=== PATIENT | female | born 1995 | race Two or more races ===

== ENCOUNTER 2017-01-29 20:05 | Emergency (ER) | payer OTHER ==
[2017-01-29] MEDS ORDERED: NS 1,000 ML IV ONE (20:22)
[2017-01-29] MEDS ORDERED: ONDANSETRON 4 MG/2 ML VIAL IVP ONE (20:22)
[2017-01-29] MEDS ORDERED: HYDROmorphONE/DILAUDID 1 MG/ML INJ IVP ONE (20:22)
--- NOTE | 2017-01-29 20:25 | EDPHY ---
H & P Stated Complaint: N & V , Epigastric pain, diarrhoea. Time Seen by Provider: 01/29/17 20:22 HPI/ROS: CHIEF COMPLAINT: Right lower quadrant pain and diarrhea HISTORY OF PRESENT ILLNESS: The patient is a 21-year-old female who comes to the emergency department complaining of right lower quadrant pain and diarrhea. She states that she was seen yesterday at [facility] and that time was complaining of muscle aches, headache and nausea, vomiting and diarrhea. The vomiting and body aches and headache have resolved but she continues to have abdominal pain and diarrhea and now the pain is focused in her right lower quadrant. No urinary symptoms. No respiratory symptoms. No chest pain. She denies risk of . She has had mild persistent vaginal bleeding since having a control implant in her arm. Her diarrhea has been nonbloody. She denies any travel or drinking unfiltered water. REVIEW OF SYSTEMS: Constitutional: denies: chills, fever, recent illness, recent injury EENTM: denies: blurred vision, double vision, nose congestion Respiratory: denies: cough, shortness of breath Cardiac: denies: chest pain, irregular heart rate, lightheadedness, palpitations Gastrointestinal/Abdominal: See HPI Genitourinary: denies: dysuria, frequency, hematuria, pain Musculoskeletal: See HPI Skin: denies: lesions, rash, jaundice, bruising Neurological: denies: headache, numbness, paresthesia, tingling, dizziness, weakness Hematologic/Lymphatic: denies: blood clots, easy bleeding, easy bruising Immunologic/allergic: denies: HIV/AIDS, transplant EXAM: GENERAL: Well-appearing, well-nourished and in no acute distress. HEAD: Atraumatic, normocephalic. EYES: Pupils equal round and reactive to light, extraocular movements intact, sclera anicteric, conjunctiva are normal. ENT: TMs normal, nares patent, oropharynx clear without exudates. Moist mucous membranes. NECK: Normal range of motion, supple without lymphadenopathy or JVD. LUNGS: Breath sounds clear to auscultation bilaterally and equal. No wheezes rales or rhonchi. HEART: Regular rate and rhythm without murmurs, rubs or gallops. ABDOMEN: Right lower quadrant tenderness BACK: No CVA tenderness, no spinal tenderness, step-offs or deformities EXTREMITIES: Normal range of motion, no pitting or edema. No clubbing or cyanosis. NEUROLOGICAL: Cranial nerves II through XII grossly intact. Normal speech, normal gait. 5/5 strength, normal movement in all extremities, normal sensation PSYCH: Normal mood, normal affect. SKIN: Warm, dry, normal turgor, no visible rashes or lesions. Source: Patient Exam Limitations: No limitations - Personal History LMP (Females 10-55): Extended Cycle BCP/Inj Current Tetanus/Diphtheria Vaccine: Unsure Current Tetanus Diphtheria and Acellular Pertussis (TDAP): Unsure - Medical/Surgical History Hx Asthma: No Hx Chronic Respiratory Disease: No Hx Diabetes: No Hx Cardiac Disease: No Hx Renal Disease: No Hx Cirrhosis: No Hx Alcoholism: No Hx HIV/AIDS: No Hx Splenectomy or Spleen Trauma: No Other PMH: [place] teeth. - Family History Significant Family History: No pertinent family hx - Social History Smoking Status: Never smoked Alcohol Use: Sober Drug Use: None Constitutional: Initial Vital Signs Temperature (C) 37.3 C 01/29/17 20:10 Heart Rate 78 01/29/17 20:10 Respiratory Rate 16 01/29/17 20:10 Blood Pressure 124/91 H 01/29/17 20:10 O2 Sat (%) 98 01/29/17 20:10 O2 Delivery Mode Room Air Allergies/Adverse Reactions: No Known Allergies Allergy (Unverified 01/29/17 20:17) Home Medications: Medication Instructions Recorded Ondansetron Odt [Zofran Odt 4 mg 4 mg PO Q4 PRN #20 tab 01/29/17 (RX)] Medical Decision Making - Diagnostics Imaging Results: Imaging Impressions Abdomen CT 01/29/17 20:22 Impression: Diffuse colitis worse in the right-sided colon and cecum. Mild free fluid in the pelvis. Results called and discussed with Dr. Denver Colunga on 01/29/2017 at 2134 hours. ED Course/Re-evaluation: 9:30 p.m. the patient's lab work is reassuring. We discussed her CT scan which is also reassuring. The patient is asking for p.o. challenge. I will have her provide a stool sample for GI pathogens. She is afebrile and nontoxic- appearing. I will not start her on antibiotics at this point. We discussed indications for returning. Her repeat abdominal exam is benign. She is laughing with her friends. I will give her a take-home Zofran and encouraged her to stay hydrated. Differential Diagnosis: Partial list of the Differential diagnosis considered include but were not limited to; colitis, appendicitis, ovarian cyst and although unlikely based on the history and physical exam, I also considered ovarian torsion, PID, , biliary disease. I discussed these differential diagnoses and the plan with the patient as well as the usual and expected course. The patient understands that the diagnosis is provisional and that in medicine we are not always correct and that further workup is often warranted. Usual and customary warnings were given. All of the patient's questions were answered. The patient was instructed to return to the emergency department should the symptoms at all worsen or return, otherwise to followup with the physician as we discussed. - Data Points Laboratory Results: Laboratory Results 01/29/17 20:30 01/29/17 20:30 01/29/17 01/29/17 01/29/17 20:55 20:45 20:30 WBC RBC Hgb POC Hgb Hct POC Hct MCV MCH MCHC RDW Plt Count MPV Neut % (Auto) Lymph % (Auto) [place] % (Auto) Eos % (Auto) Baso % (Auto) Nucleat RBC Rel Count Absolute Neuts (auto) Absolute Lymphs (auto) Absolute Monos (auto) Absolute Eos (auto) Absolute Basos (auto) Absolute Nucleated RBC Immature Gran % Immature Gran # POC Sodium Sodium POC Potassium Potassium POC Chloride Chloride Carbon Dioxide Anion Gap POC BUN BUN Creatinine POC Creatinine Estimated GFR Glucose POC Glucose Calcium Total Bilirubin Conjugated Bilirubin Unconjugated Bilirubin AST ALT Alkaline Phosphatase Total Protein Albumin Lipase Beta HCG, Qual NEGATIVE Urine Color YELLOW Urine Appearance HAZY Urine pH 6.5 (5.0-7.5) Ur Specific [place] <= 1.005 (1.002-1.030) Urine Protein NEGATIVE (NEGATIVE) Urine Ketones NEGATIVE (NEGATIVE) Urine Blood 3+ H (NEGATIVE) Urine Nitrate NEGATIVE (NEGATIVE) Urine Bilirubin NEGATIVE (NEGATIVE) Urine Urobilinogen 0.2 EU EU (0.2-1.0) Ur Leukocyte Esterase NEGATIVE (NEGATIVE) Urine RBC 15-25 /hpf H /hpf (0-3) Urine WBC OCCASIONAL /hpf /hpf (0-3) Ur Epithelial Cells 3+ /lpf H /lpf (NONE-1+) Urine Bacteria 1+ /hpf H /hpf (NONE SEEN) Urine Mucus 1+ /lpf /lpf (NONE-1+) Urine Glucose NEGATIVE (NEGATIVE) Influenza A & B (PCR) Pending 01/29/17 01/29/17 01/29/17 20:30 20:30 20:27 WBC 10.18 10^3/uL H 10^3/uL (3.80-9.50) RBC 4.62 10^6/uL 10^6/uL (4.18-5.33) Hgb 14.6 g/dL g/dL (12.6-16.3) POC Hgb 15.0 gm/dL gm/dL (12.6-16.3) Hct 41.9 % % (38.0-47.0) POC Hct 44 % % (38-47) MCV 90.7 fL fL (81.5-99.8) MCH 31.6 pg pg (27.9-34.1) MCHC 34.8 g/dL g/dL (32.4-36.7) RDW 11.7 % % (11.5-15.2) Plt Count 224 10^3/uL 10^3/uL (150-400) MPV 9.4 fL fL (8.7-11.7) Neut % (Auto) 77.9 % H % (39.3-74.2) Lymph % (Auto) 13.1 % L % (15.0-45.0) [place] % (Auto) 7.2 % % (4.5-13.0) Eos % (Auto) 1.3 % % (0.6-7.6) Baso % (Auto) 0.2 % L % (0.3-1.7) Nucleat RBC Rel Count 0.0 % % (0.0-0.2) Absolute Neuts (auto) 7.94 10^3/uL H 10^3/uL (1.70-6.50) Absolute Lymphs (auto) 1.33 10^3/uL 10^3/uL (1.00-3.00) Absolute Monos (auto) 0.73 10^3/uL 10^3/uL (0.30-0.80) Absolute Eos (auto) 0.13 10^3/uL 10^3/uL (0.03-0.40) Absolute Basos (auto) 0.02 10^3/uL 10^3/uL (0.02-0.10) Absolute Nucleated RBC 0.00 10^3/uL 10^3/uL (0-0.01) Immature Gran % 0.3 % % (0.0-1.1) Immature Gran # 0.03 10^3/uL 10^3/uL (0.00-0.10) POC Sodium 143 mEq/L mEq/L (134-144) Sodium 140 mEq/L mEq/L (134-144) POC Potassium 3.4 mEq/L mEq/L (3.3-5.0) Potassium 3.7 mEq/L mEq/L (3.5-5.2) POC Chloride 108 mEq/L mEq/L (97-110) Chloride 108 mEq/L mEq/L (97-110) Carbon Dioxide 21 mEq/l L mEq/l (22-31) Anion Gap 11 mEq/L mEq/L (8-16) POC BUN 4 mg/dL L mg/dL (7-23) BUN 6 mg/dL L mg/dL (7-23) Creatinine 0.7 mg/dL mg/dL (0.6-1.0) POC Creatinine 0.7 mg/dL mg/dL (0.6-1.0) Estimated GFR > 60 Glucose 109 mg/dL H mg/dL (70-100) POC Glucose 108 mg/dL H mg/dL (70-100) Calcium 9.6 mg/dL mg/dL (8.5-10.4) Total Bilirubin 0.6 mg/dL mg/dL (0.1-1.4) Conjugated Bilirubin 0.5 mg/dL mg/dL (0.0-0.5) Unconjugated Bilirubin 0.1 mg/dL mg/dL (0.0-1.1) AST 63 IU/L H IU/L (14-46) ALT 41 IU/L IU/L (9-52) Alkaline Phosphatase 56 IU/L IU/L (38-126) Total Protein 6.9 g/dL g/dL (6.3-8.2) Albumin 4.0 g/dL g/dL (3.5-5.0) Lipase 85 IU/L IU/L (23-300) Beta HCG, Qual Urine Color Urine Appearance Urine pH Ur Specific [place] Urine Protein Urine Ketones Urine Blood Urine Nitrate Urine Bilirubin Urine Urobilinogen Ur Leukocyte Esterase Urine RBC Urine WBC Ur Epithelial Cells Urine Bacteria Urine Mucus Urine Glucose Influenza A & B (PCR) Medications Given: Discontinued Medications Hydromorphone HCl (Dilaudid) 1 mg IVP EDNOW ONE Stop: 01/29/17 20:23 Last Admin: 01/29/17 20:35 Dose: 1 mg Sodium Chloride (Ns) 1,000 mls @ 0 mls/hr IV EDNOW ONE; Wide Open PRN Reason: Protocol Stop: 01/29/17 20:23 Last Admin: 01/29/17 20:35 Dose: 1,000 mls Ondansetron HCl (Zofran) 4 mg IVP EDNOW ONE Stop: 01/29/17 20:23 Last Admin: 01/29/17 20:36 Dose: 4 mg Ondansetron HCl (Zofran Odt 4 Mg Prepack#2) 1 btl TAKEHOME EDNOW ONE Stop: 01/29/17 21:40 Last Admin: 01/29/17 21:57 Dose: 1 btl Point of Care Test Results: 01/29/17 20:27 POC Sodium 143 POC Potassium 3.4 POC Chloride 108 POC BUN 4 L POC Creatinine 0.7 POC Glucose 108 H Departure - Departure Disposition: Home, Routine, Self-Care Clinical Impression: Colitis Condition: Fair Instructions: Ondansetron (By mouth), Colitis (ED) Referrals: NONE *PRIMARY CARE P,. [Primary Care Provider] - As per Instructions [facility] [Clinic] - As per Instructions Stand Alone Forms: Physical Education Excuse Prescriptions: Ondansetron Odt [Zofran Odt 4 mg (RX)] 4 mg PO Q4 PRN #20 tab PRN Reason: Nausea & Vomiting
[2017-01-29 20:39] LABS: % IMMATURE GRANULYOCYTES 0.3 % (0.0-1.1); ABSOLUTE IMMATURE GRANULOCYTES 0.03 10^3/uL (0.00-0.10); ADD DIFF? NO; ADD MORPH? NO; ADD SCAN? NO; ATYPICAL LYMPHOCYTE FLAG 10 (0-99); FRAGMENT RBC FLAG 0 (0-99); HEMATOCRIT 41.9 % (38.0-47.0); HEMOGLOBIN 14.6 g/dL (12.6-16.3); LEFT SHIFT FLG 0 (0-99); LIPEMIA HEMOLYSIS FLAG 90 (0-99); MEAN CELL HEMOGLOBIN 31.6 pg (27.9-34.1); MEAN CELL HEMOGLOBIN CONCENTR. 34.8 g/dL (32.4-36.7); MEAN CELL VOLUME 90.7 fL (81.5-99.8); MEAN PLATELET VOLUME 9.4 fL (8.7-11.7); PLATELET CLUMPS FLAG 10 (0-99); PLATELET COUNT 224 10^3/uL (150-400); RED BLOOD CELL COUNT 4.62 10^6/uL (4.18-5.33); RED CELL DISTRIBUTION WIDTH 11.7 % (11.5-15.2)
[2017-01-29 20:45] VITALS: RESP 18
[2017-01-29 20:53] LABS: ALANINE AMINOTRANSFERASE 41 IU/L (9-52); ALKALINE PHOSPHATASE 56 IU/L (38-126); ANION GAP 11 mEq/L (8-16); ASPARTATE AMINOTRANSFERASE 63 IU/L (14-46); BILIRUBIN,TOTAL 0.6 mg/dL (0.1-1.4); BILIRUBIN-CONJUGATED 0.5 mg/dL (0.0-0.5); BILIRUBIN-UNCONJUGATED 0.1 mg/dL (0.0-1.1); CALCIUM 9.6 mg/dL (8.5-10.4); CARBON DIOXIDE 21 mEq/l (22-31); CHLORIDE 108 mEq/L (97-110); CREATININE 0.7 mg/dL (0.6-1.0); GLOMERULAR FILTRATION RATE > 60; GLUCOSE 109 mg/dL (70-100); POTASSIUM 3.7 mEq/L (3.5-5.2); SODIUM 140 mEq/L (134-144); TOTAL PROTEIN 6.9 g/dL (6.3-8.2)
[2017-01-29 20:53] LABS: COLOR YELLOW; LEUKOCYTE ESTERASE,URINE NEGATIVE (NEGATIVE); NITRITE,URINE NEGATIVE (NEGATIVE); PH,URINE 6.5 (5.0-7.5)
[2017-01-29] MEDS ORDERED: IOPAMIDOL (ISOVUE-300) 100 ML BTL ONE (20:54)
[2017-01-29 21:02] LABS: BACTERIA 1+ /hpf (NONE SEEN); MUCUS 1+ /lpf (NONE-1+); RBC,URINE 15-25 /hpf (0-3); WBC,URINE OCCASIONAL /hpf (0-3)
[2017-01-29] MEDS ORDERED: ONDANSETRON 4MG PREPACK#2 BTL TAKEHOME ONE (21:39)
[2017-01-29 22:01] VITALS: BP 135/87; PULSE 84; TEMP 98.6; O2SAT 95
== END 2017-01-29 22:00 | disposition home or self-care (01) ==
LOC: CED 20:05
DX: K52.9 Noninfective gastroenteritis and colitis, unspecified (principal); E86.9 Volume depletion, unspecified
CPT/HCPCS: 74177-PO; 80048-PO; 80076-PO; 81003-PO; 81015-PO; 82947-QW; 83690-PO; 84703-PO; 85025-PO; 96374; J1170; J2405; Q9967

== ENCOUNTER 2017-01-30 02:22 | Inpatient (IN) | payer OTHER ==
--- NOTE | 2017-01-30 02:23 | EDPHY ---
H & P HPI/ROS: HPI CHIEF COMPLAINT: Abdominal pain HISTORY OF PRESENT ILLNESS: This patient 21-year-old female, she was here in the emergency room earlier this evening with right lower quadrant abdominal pain and diarrhea. She had a CT scan that showed colitis. Worse on the right side. She was sent home with ibuprofen. She presents back to the emergency room at 2:20 a.m. in the morning with abdominal pain. States the ibuprofen is not helping. She is requesting something stronger. She denies fever. Denies bloody stools. Of note I did review this patient's lab work and recent ER visit and recent CT scan. Past Medical History: Denies medical history Past Surgical History: Denies surgical history Social History: Denies daily use of drugs alcohol tobacco products. Family History: Noncontributory ROS REVIEW OF SYSTEMS: A comprehensive 10 point review of systems is otherwise negative aside from elements mentioned in the history of present illness. Exam Constitutional appears well nontoxic, triage nursing summary reviewed, vital signs reviewed, awake/alert. Eyes normal conjunctivae and sclera, EOMI, PERRLA. HENT normal inspection, atraumatic, moist mucus membranes, no epistaxis, neck supple/ no meningismus, no raccoon eyes. Respiratory clear to auscultation bilaterally, normal breath sounds, no respiratory distress, no wheezing. Cardiovascular rate normal, regular rhythm, no murmur, no edema, distal pulses normal. Gastrointestinal soft abdomen, tender palpation lower abdomen worse on the right side, no peritoneal signs, no rebound, no guarding, normal bowel sounds, no distension, no pulsatile mass. Genitourinary no CVA tenderness. Musculoskeletal no midline vertebral tenderness, full range of motion, no calf swelling, no tenderness of extremities, no meningismus, good pulses, neurovascularly intact. Skin pink, warm, & dry, no rash, skin atraumatic. Neurologic awake, alert and oriented x 3, AAOx3, moves all 4 extremities equally, motor intact, sensory intact, CN II-XII intact, normal cerebellar, normal vision, normal speech. Psychiatric normal mood/affect. Heme/Lymph/Immune no lymphadenopathy. Differential Diagnosis: Includes but is not limited to in a particular order colitis, acute abdominal pain, electrolyte disturbance, dehydration, need for pain control. Medical Decision Making: Plan for this patient IV establishment IV fluid bolus , IV Dilaudid for pain control, IV Zofran for nausea, check basic blood work once again. I do not feel that we need to reimage her. However given her ongoing abdominal pain and colitis seen on previous CT scan I do feel that the patient should be admitted to the hospital. Ice her pain is poorly managed at home and she has significant colitis on CT scan. She does report since leaving the emergency room her pain has been about the same no better. Additionally she has not had any vomiting but does feel nauseous. She has had some diarrhea nonbloody she tells me. No fever. Re-evaluation: 0231AM: I will consult the hospitalist service for admission. 0249AM: I did consult the hospitalist service and spoke with Dr. Ray who agrees to admit this patient. Patient will be admitted for diffuse colitis , ongoing nausea, pain control. Did explain to the patient we should get a stool study. I have started on some Flagyl due to significant thickening of the colonic wall with diffuse colitis and now has a low-grade fever. 37.9 0304AM: Patient's KUB shows no free air. There were some small amount of air- fluid levels. But there is no free air. No indication of bowel obstruction. Source: Patient - Medical/Surgical History Hx Asthma: No Hx Chronic Respiratory Disease: No Hx Diabetes: No Hx Cardiac Disease: No Hx Renal Disease: No Hx Cirrhosis: No Hx Alcoholism: No Hx HIV/AIDS: No Hx Splenectomy or Spleen Trauma: No Other PMH: [place] teeth. - Social History Smoking Status: Never smoked Constitutional: Initial Vital Signs Temperature (C) 36.9 C 01/30/17 02:26 Heart Rate 96 01/30/17 02:26 Respiratory Rate 18 01/30/17 02:26 Blood Pressure 125/84 H 01/30/17 02:26 O2 Sat (%) 96 01/30/17 02:26 O2 Delivery Mode Room Air Allergies/Adverse Reactions: No Known Allergies Allergy (Unverified 01/29/17 20:17) Home Medications: Medication Instructions Recorded NK [No Known Home Meds] 01/30/17 Medical Decision Making - Data Points Laboratory Results: Laboratory Results 01/30/17 02:30 01/30/17 02:30 Medications Given: Acetaminophen (Tylenol) 650 mg PO Q4HRS PRN PRN Reason: Pain, Mild/Fever, Can Take PO Stop: 07/29/17 05:12 Last Admin: 01/30/17 23:51 Dose: 650 mg Sodium Chloride (Ns) 1,000 mls @ 125 mls/hr IV CONT VIVIAN Stop: 07/29/17 11:29 Last Admin: 01/30/17 14:36 Dose: 1,000 mls Morphine Sulfate (Morphine) 1 - 2 mg IVP Q1HR PRN PRN Reason: Pain, Severe Unable to Take PO Stop: 02/09/17 05:12 Last Admin: 01/30/17 17:39 Dose: 2 mg Oxycodone HCl (Oxycodone Ir) 5 - 10 mg PO Q3HRS PRN PRN Reason: Pain, Severe Able to Take PO Stop: 02/09/17 05:12 Last Admin: 01/30/17 23:52 Dose: 5 mg Discontinued Medications Acetaminophen (Tylenol) 1,000 mg PO EDNOW ONE Stop: 01/30/17 02:47 Last Admin: 01/30/17 02:52 Dose: 1,000 mg Hydromorphone HCl (Dilaudid) 1 mg IVP EDNOW ONE Stop: 01/30/17 02:30 Last Admin: 01/30/17 02:36 Dose: 1 mg Sodium Chloride (Ns) 1,000 mls @ 0 mls/hr IV EDNOW ONE; Wide Open PRN Reason: Protocol Stop: 01/30/17 02:30 Last Admin: 01/30/17 02:36 Dose: 1,000 mls Ciprofloxacin/Dextrose (Cipro 400 Mg (Premix)) 200 mls @ 200 mls/hr IV EDNOW ONE PRN Reason: Protocol Stop: 01/30/17 03:33 Last Admin: 01/30/17 02:44 Dose: 200 mls Metronidazole/Sodium Chloride (Flagyl 500 Mg (Premix)) 100 mls @ 100 mls/hr IV EDNOW ONE PRN Reason: Protocol Stop: 01/30/17 03:33 Last Admin: 01/30/17 03:48 Dose: 100 mls Sodium Chloride (Ns) 1,000 mls @ 3,000 mls/hr IV ONCE ONE Stop: 01/30/17 05:32 Last Admin: 01/30/17 05:59 Dose: 1,000 mls Ondansetron HCl (Zofran) 4 mg IVP EDNOW ONE Stop: 01/30/17 02:30 Last Admin: 01/30/17 02:36 Dose: 4 mg Vancomycin HCl (Vancocin Oral Liquid) 125 mg PO QID VIVIAN PRN Reason: Protocol Stop: 03/01/17 11:29 Last Admin: 01/30/17 13:16 Dose: Not Given Departure - Departure Disposition: [facility] Clinical Impression: Colitis Abdominal pain Qualifiers: Abdominal location: right lower quadrant Qualified Code(s): R10.31 - Right lower quadrant pain Condition: Fair
[2017-01-30] MEDS ORDERED: NS 1,000 ML IV ONE ×2 (02:29→05:13)
[2017-01-30] MEDS ORDERED: HYDROmorphONE/DILAUDID 1 MG/ML INJ IVP ONE (02:29)
[2017-01-30] MEDS ORDERED: ONDANSETRON 4 MG/2 ML VIAL IVP ONE (02:29)
[2017-01-30] MEDS ORDERED: CIPROFLOXACIN 400 MG/DEXTROSE 200 ML IV ONE (02:34)
[2017-01-30] MEDS ORDERED: ACETAMINOPHEN 500 MG TAB PO ONE (02:46)
[2017-01-30 02:48] LABS: % IMMATURE GRANULYOCYTES 0.3 % (0.0-1.1); ABSOLUTE IMMATURE GRANULOCYTES 0.03 10^3/uL (0.00-0.10); ADD DIFF? NO; ADD MORPH? NO; ADD SCAN? NO; ATYPICAL LYMPHOCYTE FLAG 10 (0-99); FRAGMENT RBC FLAG 0 (0-99); HEMOGLOBIN 13.9 g/dL (12.6-16.3); LEFT SHIFT FLG 0 (0-99); LIPEMIA HEMOLYSIS FLAG 90 (0-99); MEAN CELL HEMOGLOBIN 31.5 pg (27.9-34.1); MEAN CELL HEMOGLOBIN CONCENTR. 34.8 g/dL (32.4-36.7); MEAN CELL VOLUME 90.7 fL (81.5-99.8); MEAN PLATELET VOLUME 9.3 fL (8.7-11.7); PLATELET CLUMPS FLAG 0 (0-99); PLATELET COUNT 204 10^3/uL (150-400); RED BLOOD CELL COUNT 4.41 10^6/uL (4.18-5.33); RED CELL DISTRIBUTION WIDTH 11.8 % (11.5-15.2)
[2017-01-30 02:57] LABS: ANION GAP 14 mEq/L (8-16); CARBON DIOXIDE 19 mEq/l (22-31); CHLORIDE 109 mEq/L (97-110); CREATININE 0.6 mg/dL (0.6-1.0); GLOMERULAR FILTRATION RATE > 60; GLUCOSE 115 mg/dL (70-100); SODIUM 142 mEq/L (134-144)
[2017-01-30] MEDS ORDERED: ONDANSETRON DISINTEGRATING 4 MG TAB PO PRN (05:13)
[2017-01-30] MEDS ORDERED: ONDANSETRON 4 MG/2 ML VIAL IVP PRN (05:13)
--- NOTE | 2017-01-30 05:20 | PDGENHP ---
History and Physical - Chief Complaint Diarrhea - History of Present Illness 21 yo F w/ no PMHx presented to ED with 2 days of diarrhea. Patient began to experience diarrhea 2 days ago. She was having 10+ daily BMs described as watery. She denies blood or mucus in her stool. She then developed keshia- umbilical abdominal pain 1 day ago. She denies eating any new or undercooked/ reheated foods. She also denies recent travel or antibiotic exposure. Her roommate did have an upper respiratory infection recently. She was [place] [facility] [place] discharged with only ibuprofen. She returned to the [facility] again with ongoing pain and was admitted for pain control. Patient is able to tolerate PO and is now only having 1/10 pain. History Information - Allergies/Home Medication List Allergies/Adverse Reactions: No Known Allergies Allergy (Unverified 01/29/17 20:17) I have personally reviewed and updated: family history, medical history - Past Medical History Additional medical history: Iron Def Anemia - Surgical History Reports: no pertinent surgical hx - Family History Positive for: cancer, connective tissue disorder, diabetes type II - Social History Smoking Status: Never smoked Drug Use: None Review of Systems Review of Systems: ROS: 10pt was reviewed & negative except for what was stated in HPI & below Physical Exam Physical Exam: Temp Pulse Resp BP Pulse Ox 37.1 C 92 16 119/77 98 01/30/17 04:35 01/30/17 04:35 01/30/17 04:35 01/30/17 04:35 01/30/17 04:35 Constitutional: no apparent distress, appears nourished Eyes: PERRL, EOMI Ears, Nose, Mouth, Throat: moist mucous membranes, hearing normal, no oral mucosal ulcers Cardiovascular: regular rate and rhythym, no murmur, rub, or gallop Respiratory: no respiratory distress, clear to auscultation Gastrointestinal: tenderness (Lower abdomen), No guarding, No rebound Skin: warm, normal color Musculoskeletal: full muscle strength, no muscle tenderness Neurologic: AAOx3, CN II-XII Intact Lab Data & Imaging Review 01/30/17 02:30 01/30/17 02:30 WBC 9.82 10^3/uL (3.80-9.50) H 01/30/17 02:30 RBC 4.41 10^6/uL (4.18-5.33) 01/30/17 02:30 Hgb 13.9 g/dL (12.6-16.3) 01/30/17 02:30 Hct 40.0 % (38.0-47.0) 01/30/17 02:30 MCV 90.7 fL (81.5-99.8) 01/30/17 02:30 MCH 31.5 pg (27.9-34.1) 01/30/17 02:30 MCHC 34.8 g/dL (32.4-36.7) 01/30/17 02:30 RDW 11.8 % (11.5-15.2) 01/30/17 02:30 Plt Count 204 10^3/uL (150-400) 01/30/17 02:30 MPV 9.3 fL (8.7-11.7) 01/30/17 02:30 Neut % (Auto) 84.8 % (39.3-74.2) H 01/30/17 02:30 Lymph % (Auto) 8.2 % (15.0-45.0) L 01/30/17 02:30 [place] % (Auto) 6.1 % (4.5-13.0) 01/30/17 02:30 Eos % (Auto) 0.3 % (0.6-7.6) L 01/30/17 02:30 Baso % (Auto) 0.3 % (0.3-1.7) 01/30/17 02:30 Nucleat RBC Rel Count 0.0 % (0.0-0.2) 01/30/17 02:30 Absolute Neuts (auto) 8.32 10^3/uL (1.70-6.50) H 01/30/17 02:30 Absolute Lymphs (auto) 0.81 10^3/uL (1.00-3.00) L 01/30/17 02:30 Absolute Monos (auto) 0.60 10^3/uL (0.30-0.80) 01/30/17 02:30 Absolute Eos (auto) 0.03 10^3/uL (0.03-0.40) 01/30/17 02:30 Absolute Basos (auto) 0.03 10^3/uL (0.02-0.10) 01/30/17 02:30 Absolute Nucleated RBC 0.00 10^3/uL (0-0.01) 01/30/17 02:30 Immature Gran % 0.3 % (0.0-1.1) 01/30/17 02:30 Immature Gran # 0.03 10^3/uL (0.00-0.10) 01/30/17 02:30 Sodium 142 mEq/L (134-144) 01/30/17 02:30 Potassium 4.0 mEq/L (3.5-5.2) 01/30/17 02:30 Chloride 109 mEq/L (97-110) 01/30/17 02:30 Carbon Dioxide 19 mEq/l (22-31) L 01/30/17 02:30 Anion Gap 14 mEq/L (8-16) 01/30/17 02:30 BUN 5 mg/dL (7-23) L 01/30/17 02:30 Creatinine 0.6 mg/dL (0.6-1.0) 01/30/17 02:30 Estimated GFR > 60 01/30/17 02:30 Glucose 115 mg/dL (70-100) H 01/30/17 02:30 Calcium 9.0 mg/dL (8.5-10.4) 01/30/17 02:30 Imaging Review: CT with diffuse colonic inflammation and mesenteric stranding. Assessment & Plan Assessment: 21 yo F presenting with colitis. Plan: 1. Diarrhea - Likely infectious; possibly bacterial noting diffuse inflammation and mesenteric stranding seen on CT although no blood or mucus in stool. WBC only 9 and other laboratory work-up reassuring. Patient is tolerating PO and now only having minimal pain. She has no significant risk factors for unusual pathogens. - Additional 1L IVF now - Oxy, morphine PRN for pain - Will send stool studies - Cipro started in ED, reasonable to continue for 3-5 day course; can switch to PO on discharge - Overall I suspect the patient can discharge later today after additional fluids and collection of a stool sample Diet - Regular Code - Full Ppx - Low risk Dispo - Admit to observation status
[2017-01-30] MEDS: ACETAMINOPHEN 325 MG TAB PO PRN ×2 (05:58→23:51)
--- NOTE | 2017-01-30 11:23 | HOSPPROG ---
Hospitalist Progress Note Assessment/Plan: 21 yo female admitted with acute diarrheal illness, started on IV Cipro. Chart reviewed, pt seen and examined. C diff and E coli diarrhea - stop Cipro, start po vanco, IVF's, supportive care. Dispo - cont obs, possible dc in am Subjective: Pt continues to have diarrhea associated with crampy lower abdominal pain. No fevers. No vomiting. Objective: Vital Signs Temp Pulse Resp BP Pulse Ox 36.8 C 75 16 112/62 97 01/30/17 07:31 01/30/17 07:31 01/30/17 07:31 01/30/17 07:31 01/30/17 07:31 01/29/17 01/30/17 01/31/17 05:59 05:59 05:59 Intake Total 825 Output Total 300 Balance 825 -300 - Physical Exam Constitutional: no apparent distress Eyes: PERRL Ears, Nose, Mouth, Throat: moist mucous membranes Cardiovascular: regular rate and rhythym Gastrointestinal: normoactive bowel sounds, other (soft, nd, +diffuse TTP, no r/ r/g or peritoneal signs) Skin: warm Musculoskeletal: full muscle strength Neurologic: AAOx3 Psychiatric: interacting appropriately ICD10 Worksheet Patient Problems: Problems Problem Status Onset Abdominal pain Acute Colitis Acute
[2017-01-30] MEDS: oxyCODONE IR 5 MG TAB PO PRN ×3 (12:33→23:52)
[2017-01-30] MEDS: VANCOMYCIN 125 MG/2.5 ML UDL PO SCH ×2 (12:34→13:16)
[2017-01-30] MEDS ORDERED: CIPROFLOXACIN 400 MG/DEXTROSE 200 ML IV SCH (14:30)
[2017-01-30] MEDS: NS 1,000 ML IV SCH (14:36)
--- NOTE | 2017-01-30 14:50 | ASMTCMCOM ---
CM Note CM Note Notes: Anticipate pt will DC with no needs. C/M available if needs change. Date Signed: 01/30/2017 02:49 PM Electronically Signed By:Lucila Alvarado LCSW
[2017-01-31 05:14] LABS: % IMMATURE GRANULYOCYTES 0.6 % (0.0-1.1); ABSOLUTE IMMATURE GRANULOCYTES 0.07 10^3/uL (0.00-0.10); ADD DIFF? NO; ADD MORPH? NO; ADD SCAN? NO; ATYPICAL LYMPHOCYTE FLAG 70 (0-99); FRAGMENT RBC FLAG 0 (0-99); HEMOGLOBIN 12.9 g/dL (12.6-16.3); LEFT SHIFT FLG 20 (0-99); LIPEMIA HEMOLYSIS FLAG 90 (0-99); MEAN CELL HEMOGLOBIN 31.7 pg (27.9-34.1); MEAN CELL HEMOGLOBIN CONCENTR. 33.9 g/dL (32.4-36.7); MEAN CELL VOLUME 93.4 fL (81.5-99.8); PLATELET CLUMPS FLAG 0 (0-99); PLATELET COUNT 191 10^3/uL (150-400); RED BLOOD CELL COUNT 4.07 10^6/uL (4.18-5.33); RED CELL DISTRIBUTION WIDTH 11.7 % (11.5-15.2)
[2017-01-31 05:31] LABS: ANION GAP 8 mEq/L (8-16); CALCIUM 8.5 mg/dL (8.5-10.4); CARBON DIOXIDE 23 mEq/l (22-31); CHLORIDE 105 mEq/L (97-110); CREATININE 0.7 mg/dL (0.6-1.0); GLOMERULAR FILTRATION RATE > 60; GLUCOSE 87 mg/dL (70-100); POTASSIUM 3.9 mEq/L (3.5-5.2); SODIUM 136 mEq/L (134-144)
[2017-01-31] MEDS: oxyCODONE IR 5 MG TAB PO PRN ×3 (09:28→16:24)
[2017-01-31] MEDS: NS 1,000 ML IV SCH (09:37)
[2017-01-31] MEDS ORDERED: FLU VACC QS 2017-18 (3YR+)/PF 0.5 ML SYR (FLUARIX QUAD) IM ONE (09:45)
--- NOTE | 2017-01-31 16:34 | HOSPPROG ---
Hospitalist Progress Note Assessment/Plan: 21 yo female admitted with acute diarrheal illness. E coli diarrhea - also positive for C diff, likely colonized and E coli is infectious organism. -cont supportive care, IVF's, pain control Dispo - change to inpt as pt needs ongoing hospitalization for volume depletion in setting of extensive volume less from acute infectious diarrheal illness Subjective: PT complains of crampy abdominal pain, persistent diarrhea 6 times overnight. No bloody stools. No vomiting, some nausea. Taking clears. Objective: Vital Signs Temp Pulse Resp BP Pulse Ox 37.6 C 98 16 121/77 H 95 01/31/17 15:43 01/31/17 15:43 01/31/17 15:43 01/31/17 15:43 01/31/17 15:43 Laboratory Results 01/31/17 04:29 01/31/17 04:29 01/30/17 01/31/17 02/01/17 05:59 05:59 05:59 Intake Total 825 2000 250 Output Total 300 Balance 825 1700 250 - Physical Exam Constitutional: no apparent distress Eyes: PERRL Ears, Nose, Mouth, Throat: moist mucous membranes Cardiovascular: regular rate and rhythym Respiratory: no respiratory distress Gastrointestinal: normoactive bowel sounds, other (soft, nd, +diffuse mild TTP, no r/r/g) Skin: warm Musculoskeletal: full muscle strength Neurologic: AAOx3 Psychiatric: interacting appropriately ICD10 Worksheet Patient Problems: Problems Problem Status Onset Abdominal pain Acute Colitis Acute
[2017-01-31] MEDS: ACETAMINOPHEN 325 MG TAB PO PRN (19:43)
[2017-02-01 07:47] VITALS: BP 101/58; PULSE 68; RESP 14; TEMP 98.7; O2SAT 91
[2017-02-01] MEDS: oxyCODONE IR 5 MG TAB PO PRN (08:35)
[2017-02-01] MEDS ORDERED: FLU VACC QS 2017-18 (3YR+)/PF 0.5 ML SYR (FLUARIX QUAD) IM ONE ×2 (10:00→14:00)
--- NOTE | 2017-02-01 14:08 | ASDISCHSUM ---
Discharge Information Plan Status:Home with No Needs Medically Cleared to Leave: Discharge Date:02/01/2017 01:55 PM CM D/C Disposition: ADT D/C Disposition:Home, Routine, Self-Care Projected Discharge Date:02/01/2017 01:55 PM Transportation at D/C: Discharge Delay Reason: Follow-Up Date:02/01/2017 01:55 PM Discharge Slot: Final Diagnosis: Placement Information Patient Contact Information Contact Name:LEONEL Relationship:Mother Address: Work Phone: City: [facility] Phone: State/[place] Code: Email: Financial Information Financial Class:HMO and PPO Plans Primary Plan Desc:[facility] Primary Plan Number:[id number] Secondary Plan Desc: Secondary Plan Number: Assessment Information [facility] CM Progress Note CM Note CM Note Notes: Anticipate pt will DC with no needs. C/M available if needs change. Date Signed: 01/30/2017 02:49 PM Electronically Signed By:Lucila Alvarado LCSW Intervention Information
--- NOTE | 2017-02-02 11:22 | GDS ---
[f rep st] DISCHARGE SUMMARY DISCHARGE DIAGNOSES: 1. Acute infectious diarrhea secondary to Shiga toxin producing E coli. 2. Volume depletion, resolved. IMAGING STUDIES AND PROCEDURES: CT abdomen pelvis with contrast January 29, 2017, showed diffuse c olitis, worse in the right colon and cecum. CONSULTANTS: None. HISTORY: For details, please see the History and Physical dated January 30, 2017. In brief, the truman kelly is a 21-year-old female with no significant past medical history who presented to the emergenc y department with 2 days of diarrhea. She was found to be volume depleted, and imaging was consisten t with colitis. She is admitted to the hospital for further management. HOSPITAL COURSE: The patient was admitted to medical-surgical unit. She received IV fluids. She maya d mild tachycardia on admission, which resolved with IV fluid resuscitation. GI pathogen panel was s ent, was positive for E coli, positive for Shiga-like toxin as well as C difficile. Upon admission, she was started on IV ciprofloxacin. With the results for her GI pathogen panel, the ciprofloxacin w as discontinued. She did receive 1 dose of oral vancomycin for the C difficile; however, I discussed the case with Infectious Disease, who recommended we treat only with supportive care and that she is likely simply colonized with C difficile, and her infectious organism is E coli, treatment for which is supportive care. The patient's condition clinically improved. She is able to tolerate p.o. and maintain hydration. Her diarrhea is improved at the time of discharge and she wishes to go home. DISPOSITION: Patient is discharged home in stable condition. DISCHARGE MEDICATIONS: Please see [facility] [facility] for complete updated outpatient medication list. New med ications on discharge include oxycodone 5 to 10 mg p.o. q.3 hours p.r.n. #10, no refills and Zofran 4 mg p.o. q.4 hours p.r.n. #20, no refills. FOLLOWUP INSTRUCTIONS: She should follow up with the [facility] as needed, and is instructed to return to the emergency department should her condition worsen. /[id number]/MODL
== END 2017-02-01 13:55 | disposition home or self-care (01) | DRG 373 ==
LOC: CED 02:22 → CEDHOLD 02:46 → INTOOBSV 02:46 → F3N 04:27 → OBSVTOIN 01-31 17:08
PROVIDERS: ADMIT Student in an Organized Health Care Education/Training Program; ATTEND Hospitalist
DX: A04.4 Other intestinal Escherichia coli infections (principal); B96.21 Shiga toxin-producing Escherichia coli [E. coli] [STEC] O157 as the cause of diseases classified elsewhere; A04.7 Enterocolitis due to Clostridium difficile; E86.9 Volume depletion, unspecified; Z23 Encounter for immunization
CPT/HCPCS: 74000-PO; 80048-PO; 85025-PO; 96365; G0008; G0378; J0744; J1170; J2405